=== PATIENT | male | born 1960 | race Caucasian/White ===

== ENCOUNTER 2018-09-29 14:40 | Inpatient (IN) | payer BC, SELFPAY ==
[2018-09-29] MEDS ORDERED: Famotidine/PF 20 mg/2ml Vial ONE (14:49)
[2018-09-29] MEDS ORDERED: Dexamethasone 10 MG/ML VIAL ONE (14:49)
[2018-09-29] MEDS ORDERED: EPINEPHrine 1 MG/ML AMP ONE (15:04)
--- NOTE | 2018-09-29 15:16 | RAD ---
Portable chest: HISTORY: Dyspnea. COMPARISON: none FINDINGS: Lung ayon are clear. Heart and mediastinum appear unremarkable. Vascularity is normal. Visualized osseous structures unremarkable. IMPRESSION: No acute finding
[2018-09-29 16:52] LABS: Hemoglobin 13.3 g/dL (14.0-18.0); Mean Corpuscular HGB CONC 32.6 g/dL (32.0-36.0); Mean Corpuscular Hemoglobin 33.2 pg (27.0-31.0); Mean Platelet Volume 7.6 fL (7.4-10.4); Platelet Count 214 thou/uL (130-400); RBC Distribution Width 11.4 % (11.5-14.5); Red Blood Cell (RBC) Count 4.01 mill/uL (4.70-6.10); White Blood Cell (WBC) Count 23.5 thou/uL (4.8-10.8)
[2018-09-29 17:06] LABS: ALT (SGPT) 9 U/L (8-55); AST (SGOT) 14 U/L (5-34); Albumin 3.5 g/dL (3.5-5.0); Alkaline Phosphatase 37 U/L (40-150); Anion Gap 16 mmol/L (10-20); BUN (Urea Nitrogen) 19 mg/dL (8.4-25.7); Bilirubin, Total 0.4 mg/dL (0.2-1.2); CK (CPK) 83 U/L (30-200); Calc. Creatinine Clearance 0 mL/min (70-130); Calcium 8.1 mg/dL (7.8-10.44); Carbon Dioxide 21 mmol/L (22-29); Chloride 111 mmol/L (98-107); Estimated GFR-MDRD 69; Globulin 1.8 g/dL (2.4-3.5); Glucose 164 mg/dL (70-105); Potassium 3.1 mmol/L (3.5-5.1); Protein, Total 5.3 g/dL (6.0-8.3); Sodium 145 mmol/L (136-145)
[2018-09-29 17:19] LABS: Band 33 % (5-11); Lymphocytes 3 % (21-51); MDiff Complete? YES; Macrocytosis SLIGHT = 6-15 cells (100X) (0-5/hpf); Metamyelocyte 1 % (0-0); Monocytes 7 % (0-10); Neutrophil 56 % (42-75); Ovalocytes SLIGHT = 2-5 cells (100X) (0-1/hpf); Platelet Morphology Comment Appears Adequate; Polychromasia SLIGHT = 2-3 cells (100X) (0-2/hpf)
[2018-09-29] MEDS ORDERED: Acetaminophen 325 MG TAB PO PRN (17:34)
[2018-09-29] MEDS ORDERED: EPINEPHrine 1 MG/ML AMP IM PRN (17:35)
[2018-09-29] MEDS ORDERED: Potassium Chloride 20 MEQ TAB PO SCH (18:30)
--- NOTE | 2018-09-29 18:34 | HP ---
PRIMARY CARE PROVIDER: Dr. Weiner of [facility]. CHIEF COMPLAINT: "Found some bees." HISTORY OF PRESENT ILLNESS: This is a 57-year-old male with history of hypothyroidism, carpal tunnel, and tennis elbow, who presents to the emergency room following bee stings. The patient reports that while mowing his lawn, he came across several bees and estimates about 20 stings along his arms and face. 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 However , today was different in that he had multiple stings. After this, he went into the house, took a shower to scrape off the stingers. He decided to seek care and while driving to the ER, he began to feel lightheaded and called EMS. He reports that he was given medication by EMS and generally felt out of it and was transported here, found to be hypotensive. In the emergency room here, the patient initially had a blood pressure of 154/127; however, it declined over the next few minutes to a low of 82/56, and he received an additional dose of epinephrine, steroids, IV fluids, and famotidine IV. He currently reports that he is "getting better", he denies any specific symptoms at this moment. He did report that while in the shower, he felt like his feet were on fire. In the emergency room 2 L of IV fluid, 0.5 mg epinephrine, 20 mg IV famotidine, 10 mg IV Decadron, and hospitalist called for admission. By report he received epinephrine by EMS. ALLERGIES: NO KNOWN DRUG ALLERGIES. CURRENT MEDICATIONS: Levothyroxine 25 mcg daily PAST MEDICAL HISTORY: 1. Hypothyroidism. 2. Bilateral carpal tunnel with paresthesias of his fingertips. 3. Tennis elbow. 4. Shoulder problems. PAST SURGICAL HISTORY: Right clavicle surgery, status post trauma. SOCIAL HISTORY: He is . His , Fabi, is his surrogate decision maker, he lives in [place] and denies any alcohol or tobacco. FAMILY HISTORY: Significant for hypothyroidism. REVIEW OF SYSTEMS: Negative for fevers, chills, or pain. Positive for paresthesias of his bilateral fingers that he attributes to carpal tunnel. All remaining review of systems are reviewed and negative. PHYSICAL EXAMINATION: VITAL SIGNS: Blood pressure 90/50, pulse 62, respirations 17, temperature 97.9 , and saturations 100% on room air. GENERAL: Awake, alert, and responsive, in no apparent distress. Able to speak in full sentences. HEENT: Pupils are equal and round. Tympanic membranes translucent. Oral mucosa is pink and moist. NECK: Supple and nontender. LYMPHATICS: No palpable cervical or supraclavicular lymphadenopathy. LUNGS: Clear to auscultation bilateral. HEART: Normal S1 and S2. Regular rate and rhythm. No audible murmurs. ABDOMEN: Soft. Present bowel sounds. EXTREMITIES: No clubbing, cyanosis, or edema. SKIN: He has multiple areas of erythema, and papules along his forearms, bilateral consistent with bee sting. NEUROLOGIC: No focal deficits. PSYCH: Euthymic. Alert and oriented x4. VASCULAR: 2+ dorsalis pedis pulse. LABS REVIEWED: CBC; 23.5, 13.3, 40.9, and 214. Chemistry; 145, 3.1, 111, 21, 19, 1.09, and 164. LFTs; AST 14, ALT 9, T-bilirubin 0.4, alkaline phosphatase 37, total protein 5.3 , and albumin 3.5. CK is 83. Chest x-ray is personally reviewed. There is no acute abnormality. IMPRESSION: 1. Anaphylaxis secondary to bee sting. 2. leukocytosis likely secondary to above. 3. Anemia uncertain chronicity and etiology. 4. Hypokalemia, mild. SECONDARY DIAGNOSES: 1. Hypothyroidism. 2. Bilateral carpal tunnel. 3. Tennis elbow. 4. Shoulder pain. PLAN: 1. Admission to the hospital/[facility] for close monitoring. 2. Cardiac monitoring, IV fluid hydration, epinephrine if recurrence of hypotension or other anaphylaxis symptoms. 3. Hold on additional steroids for now as patient has received a dose of this. 4. No indication for Benadryl or famotidine given that patient is not having hives or itching. 5. Continue his levothyroxine. 6. Replace potassium and recheck in AM along with CBC. 7. Followup in the outpatient setting for anemia evaluation. 8. DVT prophylaxis. The patient is ambulatory. 9. GI prophylaxis not indicated. He will be written for a regular diet. 10. Code status is full. Surrogate decision maker as noted above. 11. The patient is at high risk given age, comorbidities, and current presentation. Job ID: [id number] [facility]
[2018-09-29 18:38] VITALS: BMI 24.4
[2018-09-29] MEDS: NS 0.9% w/ 20 MEQ KCL 1,000 ML/1,000 ML BAG IV SCH (20:04)
[2018-09-29] MEDS ORDERED: diphenhydrAMINE 30 GM TUBE TOP PRN (22:33)
[2018-09-30] MEDS ORDERED: Sodium Chloride 0.9% 500 ML IV SCH (03:30)
[2018-09-30] MEDS: NS 0.9% w/ 20 MEQ KCL 1,000 ML/1,000 ML BAG IV SCH (03:56)
[2018-09-30] MEDS ORDERED: Hydrocortisone Sod Succ/PF 100 mg/2 ml Vial IVP SCH (05:00)
[2018-09-30 05:41] VITALS: BP 93/50
[2018-09-30 05:49] LABS: #Lymphocytes 0.7 thou/uL (1.20-3.40); #Monocytes 0.6 thou/uL (0.11-0.59); #Neutrophils 11.8 thou/uL (1.40-6.50); %Basophils 0.2 % (0.0-1.0); %Monocytes 4.8 % (0.0-10.0); Hemoglobin 12.1 g/dL (14.0-18.0); Mean Corpuscular Hemoglobin 33.6 pg (27.0-31.0); Platelet Count 161 thou/uL (130-400); RBC Distribution Width 11.7 % (11.5-14.5); Red Blood Cell (RBC) Count 3.59 mill/uL (4.70-6.10); White Blood Cell (WBC) Count 13.1 thou/uL (4.8-10.8)
[2018-09-30] MEDS ORDERED: Levothyroxine Sodium 25 MCG TAB PO SCH (06:00)
[2018-09-30 06:02] LABS: Anion Gap 10 mmol/L (10-20); BUN (Urea Nitrogen) 16 mg/dL (8.4-25.7); Calc. Creatinine Clearance 95 mL/min (70-130); Calcium 7.8 mg/dL (7.8-10.44); Carbon Dioxide 23 mmol/L (22-29); Chloride 111 mmol/L (98-107); Estimated GFR-MDRD Greater than 90; Glucose 138 mg/dL (70-105); Magnesium 1.5 mg/dL (1.6-2.6); Potassium 4.7 mmol/L (3.5-5.1); Sodium 139 mmol/L (136-145)
[2018-09-30 07:17] VITALS: TEMP 97.4
--- NOTE | 2018-09-30 08:47 | PDOC.PN ---
- Subjective Encounter Start Date: 09/30/18 (f/u anaphylaxis) Encounter Start Time: 08:44 Subjective: Pt reports feeling well, ambulating without difficulty, denies any new -: concerns. Overnight received additional steroids, IVF, and histamine -: blockers due to low bp. - Objective Resuscitation Status - Order Detail: 09/29/18 17:34 Resuscitation Status Routine Resuscitation Status: FULL: Full Resuscitation Vital Signs & Weight: Vital Signs (12 hours) Temp Resp BP BP BP Pulse Ox 09/30/18 07:42 100 09/30/18 07:17 97.4 F L 09/30/18 05:00 91/63 94/55 L 93/50 L 09/30/18 04:00 97.3 F L 15 98 09/30/18 00:00 97.3 F L Weight Weight 153 lb 2 oz Most Recent Monitor Data Heart Rate from ECG 58 NIBP 105/50 NIBP BP-Mean 68 Respiration from ECG 16 I&O: 09/29/18 09/30/18 10/01/18 06:59 06:59 06:59 Intake Total 2100 Output Total 250 Balance 1850 Result Diagrams: 09/30/18 05:14 09/30/18 05:14 Additional Labs: Accuchecks 09/29/18 14:52 POC Glucose 189 H EKG Reviewed by me: Yes (tele - sinus 37-60's, occasional junction beat) Phys Exam - Physical Examination Respiratory: no wheezing, no rales, no rhonchi Cardiovascular: RRR, no significant murmur Gastrointestinal: soft, non-tender, no distention, positive bowel sounds Musculoskeletal: no edema Neurological: non-focal, moves all 4 limbs Psychiatric: normal affect Deviation from normal: few erythematous papules with pustular tip on arms c/w bee sting Dx/Plan (1) Anaphylaxis Code(s): T78.2XXA - ANAPHYLACTIC SHOCK, UNSPECIFIED, INITIAL ENCOUNTER Status : Resolved Qualifiers: Encounter type: subsequent encounter Qualified Code(s): T78.2XXD - Anaphylactic shock, unspecified, subsequent encounter (2) Bradycardia Code(s): R00.1 - BRADYCARDIA, UNSPECIFIED Status: Chronic (3) Hypotension Status: Chronic Qualifiers: Hypotension type: unspecified hypotension type Qualified Code(s): I95.9 - Hypotension, unspecified (4) Anemia Code(s): D64.9 - ANEMIA, UNSPECIFIED Status: Acute (5) Hypothyroid Code(s): E03.9 - HYPOTHYROIDISM, UNSPECIFIED Status: Chronic Qualifiers: Hypothyroidism type: unspecified Qualified Code(s): E03.9 - Hypothyroidism , unspecified - Plan * Pt reports low heart rate and blood pressure at baseline - denies any sx from this - to f/u with his PCP about both of these issues * Uncertain if the low blood pressures overnight related to anaphylaxis or to patient's reported baseline - he has not been sx from this. * * Overall doing well this morning, and is ready and requesting to go home. He will need f/u with his PCP for the blood pressure/bradycardia, anemia, anaphylaxis and consideration of referral to Implementation Specialist. * *
[2018-09-30] MEDS ORDERED: Loratadine 10 MG TAB PO SCH (09:00)
[2018-09-30] MEDS ORDERED: Famotidine 20 MG TAB PO SCH (09:00)
--- NOTE | 2018-09-30 20:35 | DIS ---
DATE OF ADMISSION: 09/29/2018 DATE OF DISCHARGE: 09/30/2018 DISCHARGE DIAGNOSES: 1. Anaphylaxis secondary to bee sting. 2. Anemia, unknown chronicity and etiology. 3. Bradycardia, asymptomatic. 4. Hypotension, asymptomatic. SECONDARY DIAGNOSES: 1. Hypothyroidism. 2. Bilateral carpal tunnel with paresthesias of his fingertips. 3. Tennis elbow. 4. Shoulder pain. HISTORY OF PRESENT ILLNESS: Mr. Gloria is a 57-year-old male with the above medical problems. He was mowing his lawn and came across several bees, and estimates being stung about 20 times on his face and arms. He began to feel unwell, lightheaded and called EMS who administered epinephrine out in the field. He was transported to the emergency room and received an additional dose of epinephrine , steroids, IV famotidine, and IV fluids and was admitted for further evaluation. HOSPITAL COURSE: Over night, the patient had low blood pressures into the 80s and 90s systolic. He reports that he generally has low blood pressure and is not symptomatic from it. He was continued on IV fluids, received 1 L bolus, and an additional dose of hydrocortisone IV. This morning, he reports feeling well in his usual state of health. The patient also reports known bradycardia at home with a heart rate down into the 40s, and denies any symptoms from this. 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 The patient discussed that he is going to minimize his exposure in the future to reduce the risk of recurrence. As the patient is feeling well and in his usual state of health, he does meet criteria for discharge to home. We discussed stopping at the pharmacy to cotton picker operator the epinephrine, due to the risk of a biphasic reaction and recurrence of anaphylaxis despite a period of feeling well. Incidental finding of anemia here in the hospital, which will need to be followed up as an outpatient. Recommend also follow up with Dr. Weiner on the low blood pressures and bradycardia. MEDICATIONS AT DISCHARGE: New medication: 1. Epinephrine 0.3 mg-0.3 mL autoinjector IM x1 p.r.n. for anaphylaxis. Repeat in 5 minutes if the symptoms persist and seek help. Prescription for 2 injectors and 4 refills. Continue medication: 1. Levothyroxine 25 mcg daily. PHYSICAL EXAM: Please see daily note on chart. FOLLOWUP: Followup is with Dr. Weiner within a week to evaluate this hospitalization, further evaluate the anemia, and check thyroid levels, and discuss a referral to an resident assistant given this new diagnosis of anaphylaxis, review home blood pressures and heart rates.. DIET: Regular. ALLERGIES: NO KNOWN DRUG ALLERGIES. ACTIVITY: As tolerated. CODE STATUS: Full Reviewed with the patient in this hospitalization, the importance of followup, the risk of recurrence either through a biphasic reaction or exposure again to a bee or related stinging insect, and seek care precautions. He demonstrates understanding. No questions or further needs at the end of evaluation. TOTAL TIME COORDINATING DISCHARGE: Less than 30 minutes. Job ID: [id number] [facility]
== END 2018-09-30 10:07 | disposition home or self-care (01) | DRG 918 ==
LOC: ERS 14:40 → IMCU/EMU 18:09
PROVIDERS: ADMIT Internal Medicine; ATTEND Internal Medicine
PROC: 3E033XZ Introduction of Vasopressor into Peripheral Vein, Percutaneous Approach (ICD-10-PCS; principal; 2018-09-29)
DX: T63.441A Toxic effect of venom of bees, accidental (unintentional), initial encounter (principal); T78.2XXA Anaphylactic shock, unspecified, initial encounter; E03.9 Hypothyroidism, unspecified; G56.03 Carpal tunnel syndrome, bilateral upper limbs; D64.9 Anemia, unspecified; X58.XXXA Exposure to other specified factors, initial encounter; Z79.899 Other long term (current) drug therapy
CPT/HCPCS: 36415; 36416; 71045; 80048; 80053; 82550; 83735; 85025; 85060; J0171; J1100; J1720; J3480; S0028

== ENCOUNTER 2020-10-01 11:34 | Observation (INO) | payer OTHER ==
[2020-10-01 12:07] LABS: #Basophils 0.1 thou/uL (0.0-0.2); #Eosinphils 0.1 thou/uL (0.0-0.7); #Lymphocytes 2.1 thou/uL (1.20-3.40); #Monocytes 0.6 thou/uL (0.11-0.59); #Neutrophils 4.2 thou/uL (1.40-6.50); %Basophils 1.9 % (0.0-1.0); %Eosinophils 1.7 % (0.0-10.0); %Lymphocytes 28.9 % (21.0-51.0); %Monocytes 8.9 % (0.0-10.0); %Neutrophils 58.6 % (42.0-75.0); Hemoglobin 15.9 g/dL (14.0-18.0); Mean Corpuscular HGB CONC 34.4 g/dL (32.0-36.0); Mean Corpuscular Hemoglobin 34.5 pg (27.0-31.0); Mean Platelet Volume 7.5 fL (7.4-10.4); Platelet Count 246 thou/uL (130-400); RBC Distribution Width 11.4 % (11.5-14.5); White Blood Cell (WBC) Count 7.1 thou/uL (4.8-10.8)
[2020-10-01 12:27] LABS: ALT (SGPT) 21 U/L (8-55); AST (SGOT) 18 U/L (5-34); Albumin 4.6 g/dL (3.5-5.0); Alkaline Phosphatase 53 U/L (40-110); Anion Gap 15 mmol/L (10-20); BUN (Urea Nitrogen) 12 mg/dL (8.4-25.7); Bilirubin, Total 0.6 mg/dL (0.2-1.2); Calc. Creatinine Clearance 0 mL/min (70-130); Calcium 9.2 mg/dL (7.8-10.44); Carbon Dioxide 27 mmol/L (22-29); Chloride 101 mmol/L (98-107); Globulin 2.9 g/dL (2.4-3.5); Glucose 99 mg/dL (70-105); Lipase 72 U/L (8-78); Potassium 3.8 mmol/L (3.5-5.1); Protein, Total 7.5 g/dL (6.0-8.3); Sodium 139 mmol/L (136-145)
[2020-10-01] MEDS ORDERED: Aspirin Chewable 81 MG TAB ONE (13:04)
[2020-10-01] MEDS ORDERED: Sodium Chloride 0.9% (PF) 10 ML VIAL FS PRN (14:00)
[2020-10-01 14:46] VITALS: BMI 22.6
[2020-10-01 16:03] LABS: Troponin I Less than 0.010 ng/mL (< 0.028)
[2020-10-01 18:19] LABS: Troponin I Less than 0.010 ng/mL (< 0.028)
[2020-10-01 18:40] LABS: SARS-CoV-2 PCR by NAA Not Detected (NotDetected)
[2020-10-02 05:39] LABS: Cardiac Risk 4.2 (Less than 4.5)
[2020-10-02 08:05] LABS: Thyroid Stimulating Hormone 1.5752 uIU/mL (0.35-4.94)
[2020-10-02] MEDS ORDERED: Aspirin Chewable 81 MG TAB PO SCH (09:00)
[2020-10-02] MEDS ORDERED: Pantoprazole 40 MG VIAL IVP SCH (09:00)
[2020-10-02] MEDS ORDERED: Levothyroxine Sodium 25 MCG TAB PO SCH (09:00)
[2020-10-02 15:51] VITALS: BP 102/58; TEMP 98.1
== END 2020-10-02 16:50 | disposition home or self-care (01) ==
LOC: ERS 11:34 → 2SW 13:13
PROVIDERS: ADMIT Internal Medicine; ATTEND Internal Medicine
DX: R07.89 Other chest pain (principal); R06.02 Shortness of breath; R00.2 Palpitations; E03.9 Hypothyroidism, unspecified; E78.5 Hyperlipidemia, unspecified; Z79.899 Other long term (current) drug therapy; Z20.822 Contact with and (suspected) exposure to COVID-19
CPT/HCPCS: 36415; 71045; 78452; 80053; 80061; 83690; 84439; 84443; 84481; 84484; 85025; 87635; 93005; 93010; 93017; 93306; 94760; 96374; A9500; C9113; G0378; U0003; U0005